=== PATIENT | male | born 1965 | race African-American/Black ===

== ENCOUNTER 2017-03-04 11:29 | Inpatient (IN) ==
[2017-03-04] MEDS: NS 1,000 ML IV SCH ×2 (12:50→23:19)
[2017-03-04] MEDS ORDERED: TYLENOL PO PRN (13:03)
[2017-03-04] MEDS ORDERED: NORCO-7.5 PO PRN (13:03)
[2017-03-04] MEDS ORDERED: ZOFRAN IV PRN (13:03)
[2017-03-04] MEDS ORDERED: ATIVAN IV PRN (13:08)
[2017-03-04] MEDS ORDERED: M.V.I.-12 10 ML, FOLIC ACID 1 MG, MAGNESIUM SULFATE 1 GM, THIAMINE 100 MG in NS 1,000 ML IV ONE (13:08)
--- NOTE | 2017-03-04 13:40 | Diag Imaging Result Doc PS360 ---
EXAM: CHEST-PORTABLE HISTORY: r/o pna TECHNIQUE: Upright AP COMPARISON: None. FINDINGS: The lungs are well expanded. The heart is not enlarged. The vessels are not distended. No pneumonia. No pleural effusions identified. IMPRESSION: Negative chest. Electronically signed by Ion Manriquez 03/04/2017 1:37 PM
[2017-03-04 13:41] LABS: ALLEN TEST YES; BE 0.8 mmoll (-3.0-3.0); BLOOD TYPE ARTERIAL; DRAW SITE R RADIAL; O2(CT) 14.6 mL/dL (15.0-23.0); PCO2(98.6) 43 mmHg (35-45); PO2(98.6) 81 mmHg (60-100); SAMPLE BLOOD; SAO2 97.7 % (95.0-100.0); pH(98.6) 7.39 (7.35-7.45)
[2017-03-04 13:44] LABS: MODALITY ROOM AIR
--- NOTE | 2017-03-04 13:51 | HISTORY AND PHYSICAL ---
51-year-old, I believe he has been in this hospital recently but apparently came to [facility] this morning, emergency room. He said he woke up about 4 this morning. Had some cramping in his belly and pointed to the left mid belly and went to have a bowel movement and all of a sudden he started throwing up and threw up blood. He threw up several times. When he went back to bed he felt a little lightheaded and weak and he apparently fell back asleep and then later on that morning, this morning, he woke up, again same thing, abdominal cramping. Went to have a bowel movement and he threw up blood and this time he did not feel so good and feels like he was having presyncope and about passed out. Vision was getting blurry so they came to the emergency room. He denies fever or chills. Denies any much in the way of past medical history. He does admit he drinks he says less than a half a pint a day but he does drink daily. He also smokes a couple of cigarettes every day. He apparently has had epigastric discomfort and dyspepsia when eating and for the last 3 months or so he was put on Prilosec. He does take ibuprofen 200 to 800 mg a day. He denies any knowledge of liver dysfunction. Denies any surgeries. No known drug allergies. No other medical issues and he does not like to come to the doctor much and has not been to a doctor he says in about 12 years. REVIEW OF SYSTEMS: His weight is steady. His bowels are regular.HEENT: Unremarkable. Respiratory: No increased work of breathing or dyspnea. Cardiovascular: No chest pain or tachy palpitation. GI/: As above. Was not having any trouble until this morning. Never thrown up any blood or spit up any blood or had any blood from his stool. PHYSICAL EXAMINATION: GENERAL: Well developed, well nourished, black male, awake and alert, oriented, pleasant. HEENT: Pupils are equal round. CVP less than 6 cm. LUNGS: Clear in all lung castillo. CARDIOVASCULAR: Regular rhythm and rate without murmur or S3. ABDOMEN: Soft. SKIN: Warm and dry. ABDOMEN: Without hepatojugular reflux or hepatosplenomegaly. LAB: Urine was negative. ProTime is 13.3, INR 1.3. D-dimer 713, normal value 0-500 mcg/mL. Sodium 139, potassium 4.6, chloride 101, glucose 211. BUN 21, creatinine 1.3. Liver functions unremarkable. Calcium 8.5. Alcohol level less than 10. White blood cell count 8500, hemoglobin 11.8, hematocrit 36, platelet count 392,000. EKG unremarkable by report. ASSESSMENT AND PLAN: 1. Upper GI bleeding, pretty heavy drinker. Possibilities are ulcer, gastritis and also possible esophageal varices. No history of alcoholic cirrhosis but we will put him on proton pump inhibitor. Give him IV fluids, watch his blood counts and transfuse as necessary. Probably need an EGD to explore the abdomen. 2. Noticed his sugars were 200. We will pattern his sugars while he is here. He may have diabetes. 3. Just some arthralgia for which he is taking nonsteroidal anti-inflammatories. We will probably have to hold off on anti-inflammatories for a while . cc: Sadiq Garcia MD
[2017-03-04 14:04] LABS: BASO% 0.1 % (0.0-0.8); HEMATOCRIT 31.8 % (42.0-52.0); HEMOGLOBIN 10.7 g/dL (14.0-18.0); IMM GRAN# 0.04 X1000 (0.0-0.04); IMM GRAN% 0.3 % (0.0-0.5); LYMPH# 0.85 X1000 (1.2-3.4); MANUAL DIFF NEEDED? YES; MCH 28.1 PG (27-31); MCHC 33.6 g/dL (33-37); MCV 83.5 FL (81-99); MONO# 0.47 X1000 (0.11-0.59); MONO% 3.9 % (1.7-9.3); MPV 9.2 FL (7.4-10.4); NEUT% 88.7 % (42.2-75.2); PLT 357 X1000 (130-400); RBC 3.81 XMIL (4.7-6.1)
[2017-03-04 14:09] LABS: INR 1.04; PROTIME 10.9 Seconds (9.2-11.7); PTT 23.8 Seconds (22.0-36.0)
[2017-03-04 14:23] LABS: AMYLASE 48 U/L (20-200); LIPASE 36 U/L (13-60)
[2017-03-04 14:25] LABS: AGAP 12; ALBUMIN 3.6 g/dL (3.5-5.0); ALKALINE PHOSPHATASE 86 U/L (32-122); BUN 29 mg/dL (8-22); CHLORIDE 104 mmol/L (98-107); COSMO 285; GOT 10 U/L (10-34); GPT 11 U/L (10-44); POTASSIUM 4.8 mmol/L (3.5-5.1); SODIUM 140 mmol/L (136-145); TCO2 24 mmol/L (25-35); TOTAL BILIRUBIN 0.83 mg/dL (0.20-1.00); TOTAL PROTEIN 5.9 g/dL (6.3-8.3)
[2017-03-04 14:26] LABS: IRON SATURATION 58 %; TIBC 238 ug/dL; TOTAL IRON 137 ug/dL (53-167); UNBOUND IRON 101 ug/dL (112-346)
[2017-03-04 14:30] LABS: LYMPHS 9 % (21-51)
[2017-03-04 14:37] LABS: FREE T4 1.01 ng/dL (0.93-1.70)
[2017-03-04] MEDS: PROTONIX 80 MG in NS 80 ML IV SCH ×2 (14:44→23:18)
[2017-03-04] MEDS: CARAFATE LIQUID PO SCH ×2 (14:44→20:49)
[2017-03-04] MEDS: HUMULIN R SUBQ SCH ×2 (16:27→20:49)
[2017-03-04 18:27] LABS: HEMATOCRIT 31.3 % (42.0-52.0); HEMOGLOBIN 10.3 g/dL (14.0-18.0)
[2017-03-05 00:58] LABS: HEMOGLOBIN 8.9 g/dL (14.0-18.0)
[2017-03-05] MEDS: CARAFATE LIQUID PO SCH ×4 (01:46→20:20)
[2017-03-05 05:08] LABS: MANUAL DIFF NEEDED? NO
[2017-03-05 05:14] LABS: BASO% 0.1 % (0.0-0.8); EOS# 0.05 X1000 (0.0-0.7); EOS% 0.7 % (0.0-10.0); HEMATOCRIT 26.2 % (42.0-52.0); HEMOGLOBIN 8.6 g/dL (14.0-18.0); LYMPH# 1.71 X1000 (1.2-3.4); LYMPH% 24.3 % (20.5-51.1); MCH 27.7 PG (27-31); MCHC 32.8 g/dL (33-37); MCV 84.2 FL (81-99); MONO# 0.42 X1000 (0.11-0.59); MPV 8.9 FL (7.4-10.4); NEUT% 68.9 % (42.2-75.2); PLT 290 X1000 (130-400); RBC 3.11 XMIL (4.7-6.1)
[2017-03-05 05:26] LABS: INR 1.02; PROTIME 10.7 Seconds (9.2-11.7); PTT 27.1 Seconds (22.0-36.0)
[2017-03-05 05:56] LABS: AGAP 9; ALKALINE PHOSPHATASE 70 U/L (32-122); BUN 20 mg/dL (8-22); CALCIUM 7.4 mg/dL (8.8-10.2); CHLORIDE 107 mmol/L (98-107); COSMO 284; GOT 8 U/L (10-34); GPT 9 U/L (10-44); MAGNESIUM 2.2 mg/dL (1.5-2.7); POTASSIUM 3.9 mmol/L (3.5-5.1); SODIUM 141 mmol/L (136-145); TCO2 25 mmol/L (25-35); TOTAL BILIRUBIN 0.64 mg/dL (0.20-1.00); TOTAL PROTEIN 4.9 g/dL (6.3-8.3)
[2017-03-05 06:28] LABS: HEMOGLOBIN A1C 4.5 % (4.8-6.0)
[2017-03-05] MEDS: HUMULIN R SUBQ SCH ×4 (06:35→20:20)
[2017-03-05] MEDS: NS 1,000 ML IV SCH ×3 (06:36→22:13)
[2017-03-05] MEDS: PROTONIX 80 MG in NS 80 ML IV SCH ×3 (07:26→16:07)
[2017-03-05] MEDS: M.V.I.-12 10 ML, FOLIC ACID 1 MG, MAGNESIUM SULFATE 1 GM, THIAMINE 100 MG in NS 1,000 ML IV SCH (08:02)
--- NOTE | 2017-03-05 11:53 | PROGRESS NOTE ---
DATE: 03/05/2017 SUBJECTIVE: He is feeling better. He feels good. He has not had any more vomiting. No blood. OBJECTIVE: Vital Signs: Remains afebrile. Temperature 98.7 degrees, pulse 70, respirations 14, blood pressure 119/75. HEENT: Pupils are equal, round. Lungs: Clear in all lung castillo. Cardiovascular: Regular rhythm and rate without murmur or S3. LABORATORY STUDIES: Urine output was 3300 mL. Blood sugars 109 and 93. Lab today: White count 7040, hematocrit 26 so has dropped a little bit, platelet count 290,000. Chemistry: Sodium 141, potassium 3.9, chloride 107, bicarb 25, BUN 20, creatinine 1.0. Albumin 3.0. The chest x-ray from yesterday negative chest. ASSESSMENT AND PLAN: 1. upper gastrointestinal bleed. Dr. Lara is planning on doing an EGD and probably need colonoscopy as well. 2. Blood sugars appear to be well controlled. 3. History of some arthralgia consistent with osteoarthritis. Was taking nonsteroidal anti- inflammatories. He is on full liquid diet. Hematocrit has dropped a little bit but hemodynamically stable. cc: Sadiq Garcia MD
[2017-03-05 12:00] LABS: HEMATOCRIT 26.4 % (42.0-52.0); HEMOGLOBIN 8.6 g/dL (14.0-18.0)
[2017-03-05 18:28] LABS: HEMATOCRIT 25.8 % (42.0-52.0); HEMOGLOBIN 8.5 g/dL (14.0-18.0)
--- NOTE | 2017-03-05 19:06 | CONSULTATION ---
DATE OF CONSULTATION: 03/05/2017 REASON FOR CONSULTATION: Hematemesis, melena. HISTORY OF PRESENT ILLNESS: This is a 51-year-old gentleman who went to [place] emergency room with a history of passing bloody stools, followed by hematemesis. He had that several times. He said he was feeling weak and near syncopal. Was brought to the emergency room. Had no history of bleeding before, although he says he had ulcers a long time ago. He smokes a couple of cigarettes, drinks half a pint daily. Has been taking Goody powders and Mobic or ibuprofen. He had abdominal pain about 3 months ago. He was started on Prilosec. REVIEW OF SYSTEMS: They were essentially negative other than has some headaches in the morning, body aches, and joint pains for which he takes nonsteroidals. Has not had a physical in about 12 years. PHYSICAL EXAMINATION: General: Young man, lying in bed. Family is around. Vital signs: Stable. Blood pressure 120/80, pulse of 90, respirations 14, and O2 saturation 100% on room air. HEENT: Marked conjunctival pallor. Neck: Supple. Trachea in the midline. Heart: Normal first and second heart sounds. Lungs: Clear. Abdomen: Soft. Nontender. Bowel sounds present and normal. No organomegaly or ascites. LABS: INR 1.3. Electrolytes are normal except glucose is 211. Hematocrit when he came in was 30; it dropped to 26. EKG unremarkable. IMPRESSION: 1. Blood loss anemia. 2. Upper gastrointestinal bleed, most likely secondary to peptic ulcer disease and nonsteroidal ulcers. 3. No evidence of cirrhosis of the liver. 4. Possible diabetes mellitus type 2. 5. Arthritis/arthralgia for which he was taking nonsteroidals. PLAN: He has blood typed and cross matched but he does not need it yet. We will proceed with upper GI endoscopy in the morning. He asked me about colonoscopy as well since he never had 1, but I would rather get his blood count up and we can do the colonoscopy electively. I am taking him up for EGD tomorrow. cc: Humble Lara MD
[2017-03-06] MEDS: CARAFATE LIQUID PO SCH ×4 (01:19→21:46)
[2017-03-06 01:39] LABS: HEMATOCRIT 23.6 % (42.0-52.0); HEMOGLOBIN 7.7 g/dL (14.0-18.0)
[2017-03-06] MEDS: PROTONIX 80 MG in NS 80 ML IV SCH ×4 (03:11→19:54)
[2017-03-06] MEDS ORDERED: NS 250 ML ONE (04:11)
[2017-03-06] MEDS: NS 1,000 ML IV SCH ×3 (05:35→21:46)
[2017-03-06] MEDS: HUMULIN R SUBQ SCH ×4 (06:10→21:46)
--- NOTE | 2017-03-06 09:13 | PROGRESS NOTE ---
DATE: 03/06/2017 SUBJECTIVE: He feels comfortable. No complaints of pain. No further bleeding. He is supposed to have his EGD done today. OBJECTIVE: He remains afebrile. Temperature is 98.3, pulse 69, respirations 15, blood pressure 122/80. Urine output was over 7 L. DIAGNOSTIC DATA: White count is 7040, hematocrit 26, platelet count 290,000, hematocrit 23 this morning. ASSESSMENT AND PLAN: 1. Blood loss anemia from gastrointestinal bleed suspected, probably secondary to peptic ulcer disease. EGD to be done today. He has been taking nonsteroidal anti-inflammatories. 2. No evidence of cirrhosis of the liver. 3. Diabetes mellitus type 2. 4. Arthritis and arthralgia with using nonsteroidal anti-inflammatories. cc: Sadiq Garcia MD
[2017-03-06] MEDS ORDERED: FENTANYL ONE (10:06)
[2017-03-06] MEDS ORDERED: DIPRIVAN 1% ONE ×2 (10:07)
[2017-03-06] MEDS: ICAR-C PO SCH ×2 (10:49→21:45)
[2017-03-06] MEDS: M.V.I.-12 10 ML, FOLIC ACID 1 MG, MAGNESIUM SULFATE 1 GM, THIAMINE 100 MG in NS 1,000 ML IV SCH (10:49)
--- NOTE | 2017-03-06 11:15 | OPERATIVE NOTE ---
PROCEDURE DATE: 03/06/2017 REFERRING PHYSICIAN: Damian Claire MD PRIMARY CARE DOCTOR: None. PROCEDURE PERFORMED: Esophagogastroduodenoscopy. PROVIDER: Phillip Dickson MD PREOPERATIVE DIAGNOSES: 1. Coffee-ground emesis going on since Monday. 2. Anemia, requiring 1 unit of blood transfusion with current hematocrit of 23. 3. History of use of a lot of nonsteroidal anti-inflammatory drugs, like ibuprofen, Mobic, Goody powder, and BC powder. 4. History of chronic smoker for many decades. 5. History of drinking alcohol but, according to him, he is drinking only on the weekends. 6. Abdominal pain in the epigastric region. POSTOPERATIVE DIAGNOSES: 1. Mild esophagitis in the distal esophagus. 2. Z-line visualized at 43 cm. 3. Hiatal hernia, 1-2 cm, sliding type. 4. Bile in the stomach. 5. A large ulcer in the gastric incisura with no visible vessel. 6. Normal fundus and cardia on retroflexion. 7. Gastritis in the body and antrum. 8. Large ulcer in the superior aspect of the duodenal bulb, measuring about 1-2 cm, with no visible vessel. 9. Duodenitis. 10. Normal 2nd portion of the duodenum. ESTIMATED BLOOD LOSS: None. COMPLICATIONS: None. ANESTHESIA: Monitored anesthesia care. SPECIMENS: None. DESCRIPTION OF PROCEDURE: After informed consent, the patient having been explained the risks, benefits, indications, and alternatives of the procedure, the patient was prepared for EGD. The risks of the procedure, including infection, bleeding, pain, trauma to the surrounding area, and perforation were explained to the patient, among others, and he acknowledged understanding and agreed to proceed. He was brought to the OR. He was turned into the left lateral position. A bite block was placed. After adequate monitored anesthesia care, the upper scope was gently introduced through the oral vestibule all the way to the 2nd portion of duodenum. The esophagus was normal in the proximal and middle thirds. The distal esophagus showed erythema suggesting esophagitis. The Z-line was visualized at 43 cm. There was evidence of sliding hiatal hernia, 1- 2 cm. The stomach showed evidence of bile, which was suctioned out. Retroflexion in the stomach revealed a normal fundus and cardia. There was evidence of erythema and erosions in the body and antrum, suggesting erosive gastritis. There was evidence of a large ulcer, measuring at least 1 cm, at the gastric incisura with no visible vessel. The scope was advanced into the duodenum, which showed evidence of a large ulcer, 1 to 1.5 cm, in the superior aspect of the duodenal bulb with no visible vessel and no visible clot. There was surrounding duodenitis. The 2nd portion of the duodenum appeared normal. There was no evidence of fresh or old blood on the entire EGD. The scope withdrawn up to the hypopharynx and, there, we saw some oozing, which stopped spontaneously. At some point, the patient may need to be evaluated by ENT, as he has a history of smoking and alcohol, to evaluate for any kind of etiology in ENT area. The patient tolerated the procedure and is currently being monitored in the OR. I discussed the findings with the patient upon waking up. RECOMMENDATIONS: 1. The patient will be on a Protonix drip for 72 hours and then switch to Protonix IV b.i.d. and, on discharge, will need to be on Protonix twice daily for 3 months and then can transition to PPIs once daily. 2. The patient will follow gastroesophageal reflux life changes. 3. The patient is to have repeat EGD in 3-6 months to document healing of the ulcers. At that time, we will decide about weaning him off PPIs. 4. The patient will be on Iron-C b.i.d. for 3 months. 5. The patient was counseled to quit smoking and alcohol completely. 6. The patient was counseled to quit use of NSAIDs completely. 7. The patient will be in the ICU for the next 24 hours. 8. We will type and cross and transfuse to keep hematocrit more than 25%. 9. Further recommendations to follow pending results. cc: MD Damian Sharma MD
[2017-03-06] MEDS ORDERED: ZOFRAN ONE (12:49)
[2017-03-06] MEDS ORDERED: NS 1,000 ML ONE (12:49)
[2017-03-06] MEDS ORDERED: XYLOCAINE-MPF 2% ONE (12:49)
[2017-03-07] MEDS: PROTONIX 80 MG in NS 80 ML IV SCH ×2 (01:52→06:17)
[2017-03-07] MEDS: CARAFATE LIQUID PO SCH ×2 (02:27→07:56)
[2017-03-07] MEDS: NS 1,000 ML IV SCH ×2 (05:20→12:39)
[2017-03-07] MEDS: HUMULIN R SUBQ SCH ×2 (06:22→12:39)
[2017-03-07 06:28] LABS: MANUAL DIFF NEEDED? NO
[2017-03-07 06:35] LABS: BASO% 0.4 % (0.0-0.8); EOS# 0.11 X1000 (0.0-0.7); EOS% 1.4 % (0.0-10.0); HEMATOCRIT 30.6 % (42.0-52.0); HEMOGLOBIN 10.3 g/dL (14.0-18.0); LYMPH# 1.25 X1000 (1.2-3.4); LYMPH% 15.4 % (20.5-51.1); MCH 28.4 PG (27-31); MCHC 33.7 g/dL (33-37); MCV 84.3 FL (81-99); MONO# 0.49 X1000 (0.11-0.59); MPV 9.4 FL (7.4-10.4); NEUT% 76.8 % (42.2-75.2); PLT 296 X1000 (130-400); RBC 3.63 XMIL (4.7-6.1)
[2017-03-07] MEDS ORDERED: SODIUM CHLORIDE 0.9% 10 ML ONE (07:28)
[2017-03-07 07:33] VITALS: BP 116/79
[2017-03-07] MEDS: ICAR-C PO SCH ×2 (07:56→09:44)
[2017-03-07] MEDS: M.V.I.-12 10 ML, FOLIC ACID 1 MG, MAGNESIUM SULFATE 1 GM, THIAMINE 100 MG in NS 1,000 ML IV SCH (09:43)
[2017-03-07] MEDS ORDERED: PROTONIX IV SCH (13:09)
--- NOTE | 2017-03-07 13:46 | DISCHARGE SUMMARY ---
ADMISSION DATE: 03/04/2017 DISCHARGE DATE: 03/07/2017 HOSPITAL COURSE: The patient had been in this hospital recently. He apparently came in to [facility] the morning of 03/04/2017. He woke up early in the morning at 4:00. His belly was cramping. He went to the bathroom and vomited up quite a bit of bright red blood. He was able to go back to bed and woke up a little later and had the same event, abdominal cramping. He went to the bathroom throwing up blood. After that, he felt really lightheaded and pretty weak and puny so he came to the emergency room. He does not have much in the way of significant past medical history. Apparently, he has had some epigastric discomfort and dyspepsia which for the last 3 months. He has been taking quite a bit of ibuprofen for some arthralgia. He was given IV fluids. An upper GI was performed per Dr. Garcia on 03/06/2017 and they found mild esophagitis in the distal esophagus. The Z-line visualized at 43 cm. Hiatal hernia, 1-2 cm sliding type. There was bile in the stomach. Large ulcer in the gastric incisura. No visible vessel. Normal fundus and cardia in retroflexion. Gastritis in the body and antrum. Large ulcer in the superior aspect of the duodenal bulb, measuring about 1-2 cm. No visible vessel. Duodenitis. Patient kept on clear liquids. He is on Protonix and also on Carafate. His blood counts remained stable. We did give him, I think, 2 units of blood on 03/06/2017. He had a hemoglobin of 7, hematocrit 23. Follow- up hematocrit was 30 with a hemoglobin of 10. We will discharge him home. Discharged on Icar C1 b.i.d., Protonix 40 mg p.o. twice a day and Carafate 1 g q.6 hours. Follow up with his primary care. We will set him up to see Dr. Garcia in followup. He will need an outpatient colonoscopy I believe. I instructed him to stay on clear liquids for the next 3 or 4 days and then slowly advance his diet to soft diet and continue the Protonix 40 mg twice a day and Carafate 1 g q.6 for 4 weeks. cc: Sadiq Garcia MD
== END 2017-03-07 14:36 | disposition home or self-care (01) ==
LOC: DIRADM 11:29 → SUATTDRO 11:29 → ICU 11:34 → 3N 03-06 19:07
PROVIDERS: ATTEND Emergency Medicine